=== PATIENT | female | born 1985 | race African-American/Black ===

== ENCOUNTER 2017-05-13 15:04 | Emergency (ER) | payer MEDICAID, OTHER ==
[~2017-05-13] VITALS: Ht 162.6 cm; Wt 84.0 kg
[2017-05-13 16:00] VITALS: BP 133/77
[2017-05-13 16:44] LABS: BASOPHILS % 0.5 % (0.0-2.0); EOSINOPHILS % 0.9 % (0.0-5.0); HEMATOCRIT. 39.1 % (36.0-48.0); HEMOGLOBIN. 13.1 g/dL (12.0-16.0); LYMPHOCYTES % 27.3 % (20.0-50.0); MEAN CORPUSCULAR HEMOGLOBIN 30.3 pg (28.0-32.0); MEAN CORPUSCULAR VOLUME 90.4 fL (81.0-99.0); MEAN PLATELET VOLUME 8.2 fl (7.4-10.4); MONOCYTES % 7.4 % (2.0-8.0); NEUTROPHILS % 63.9 % (40.0-76.0); PLATELET 316 x1000/uL (130-400); RED BLOOD CELL COUNT 4.33 mill/uL (4.2-5.4); RED CELL DISTRIBUTION WIDTH 14.8 % (11.6-14.6)
[2017-05-13 17:01] LABS: CARBON DIOXIDE 26 mEq/L (21-32); CHLORIDE 106 mEq/L (98-107)
[2017-05-13 17:03] LABS: B-HCG QUANTITATIVE 471 mIU/mL (<3)
== END 2017-05-13 18:57 | disposition home or self-care (01) ==
LOC: ER 15:10
DX: O46.92 Antepartum hemorrhage, unspecified, second trimester (principal); Z3A.22 22 weeks gestation of pregnancy
CPT/HCPCS: 36415; 76801; 80048; 84702; 85025; 86850; 86900; 99285

== ENCOUNTER 2017-05-14 09:59 | Inpatient (IN) | payer MEDICAID, OTHER ==
[~2017-05-14] VITALS: Ht 162.6 cm; Wt 83.9 kg
[2017-05-14 14:20] LABS: BASOPHILS % 0.8 % (0.0-2.0); EOSINOPHILS % 1.1 % (0.0-5.0); HEMATOCRIT. 38.3 % (36.0-48.0); HEMOGLOBIN. 13.1 g/dL (12.0-16.0); LYMPHOCYTES % 24.7 % (20.0-50.0); MEAN CORPUSCULAR HEMOGLOBIN 30.3 pg (28.0-32.0); MEAN CORPUSCULAR VOLUME 88.8 fL (81.0-99.0); MEAN PLATELET VOLUME 8.4 fl (7.4-10.4); MONOCYTES % 6.3 % (2.0-8.0); NEUTROPHILS % 67.1 % (40.0-76.0); PLATELET 289 x1000/uL (130-400); RED BLOOD CELL COUNT 4.31 mill/uL (4.2-5.4)
[2017-05-14 14:28] LABS: CHLORIDE 106 mEq/L (98-107)
[2017-05-14 14:31] LABS: CARBON DIOXIDE 24 mEq/L (21-32)
[2017-05-14 14:38] LABS: B-HCG QUANTITATIVE 509 mIU/mL (<3)
[2017-05-14 20:00] VITALS: BP 128/99
[2017-05-14] MEDS ORDERED: METHOTREXATE SODIUM/PF 50 MG/2 ML VIAL IM ONE (22:45)
[2017-05-14] MEDS ORDERED: IBUPROFEN 400MG TABLET PO PRN (23:00)
[2017-05-14] MEDS ORDERED: OXYCODONE HCL/ACETAMINOPHEN 5/325MG TABLET PO PRN (23:00)
[2017-05-14] MEDS ORDERED: METHOTREXATE SODIUM/PF 50 MG/2 ML VIAL IM NR (23:00)
[2017-05-15] VITALS: BP 125/68
[2017-05-15 04:00] VITALS: BP 98/62
[2017-05-15 04:30] VITALS: BP 120/64
[2017-05-15] MEDS ORDERED: PREN-88 PO (06:02)
[2017-05-15] MEDS ORDERED: BISA-81 PO (06:02)
[2017-05-15 06:57] LABS: BASOPHILS % 0.5 % (0.0-2.0); EOSINOPHILS % 2.1 % (0.0-5.0); HEMATOCRIT. 37.9 % (36.0-48.0); HEMOGLOBIN. 12.7 g/dL (12.0-16.0); LYMPHOCYTES % 30.8 % (20.0-50.0); MEAN CORPUSCULAR HEMOGLOBIN 30.4 pg (28.0-32.0); MEAN CORPUSCULAR VOLUME 90.8 fL (81.0-99.0); MEAN PLATELET VOLUME 8.4 fl (7.4-10.4); MONOCYTES % 9.3 % (2.0-8.0); NEUTROPHILS % 57.3 % (40.0-76.0); PLATELET 293 x1000/uL (130-400); RED BLOOD CELL COUNT 4.18 mill/uL (4.2-5.4)
[2017-05-15 08:00] VITALS: BP 116/65
[2017-05-15] MEDS ORDERED: ARIPIPRAZOLE 10MG TABLET PO SCH (09:00)
[2017-05-15 12:00] VITALS: BP 101/65
[2017-05-15 12:34] VITALS: BP 101/65
[2017-05-15] MEDS ORDERED: DOXEPIN HCL 25MG CAPSULE PO SCH (21:00)
== END 2017-05-15 14:15 | disposition home or self-care (01) | DRG 566 ==
LOC: ER 09:59 → ENRESERV 18:02 → 6EST 18:45
PROVIDERS: ADMIT Obstetrics & Gynecology; ATTEND Obstetrics & Gynecology
DX: O00.90 Unspecified ectopic pregnancy without intrauterine pregnancy (principal); F32.9 Major depressive disorder, single episode, unspecified; N93.9 Abnormal uterine and vaginal bleeding, unspecified; Z3A.22 22 weeks gestation of pregnancy
CPT/HCPCS: 36415; 76830; 76856; 80048; 80051; 84702; 85025; 99285; J7030; J9260

== ENCOUNTER 2017-09-10 23:40 | Emergency (ER) | payer OTHER ==
[~2017-09-10] VITALS: Ht 162.6 cm; Wt 87.0 kg
[~2017-09-10 23:40] MED LIST: BISA-81 PO; PREN-88 PO
[2017-09-11] MEDS ORDERED: ACETAMINOPHEN 325MG TABLET PO STA (03:24)
[2017-09-11 03:38] LABS: CLARITY URINE CLEAR (CLEAR); COLOR URINE YELLOW (YELLOW); GLUCOSE URINE NEGATIVE (NEGATIVE); KETONES URINE NEGATIVE (NEGATIVE); LEUKOCYTE ESTERASE URINE NEGATIVE (NEGATIVE); NITRITE URINE NEGATIVE (NEGATIVE); OCCULT BLOOD URINE NEGATIVE (NEGATIVE); PROTEIN URINE NEGATIVE (NEGATIVE); SPECIFIC GRAVITY URINE 1.027 (1.005-1.030); UROBILINOGEN URINE 0.2 E.U./dL (0.2-1.0)
[2017-09-11 04:04] LABS: CHLORIDE 107 mEq/L (98-107)
[2017-09-11 04:11] LABS: BASOPHILS % 0.4 % (0.0-2.0); EOSINOPHILS % 0.7 % (0.0-5.0); HEMATOCRIT. 37.9 % (36.0-48.0); HEMOGLOBIN. 12.8 g/dL (12.0-16.0); LYMPHOCYTES % 25.6 % (20.0-50.0); MEAN CORPUSCULAR HEMOGLOBIN 30.8 pg (28.0-32.0); MEAN CORPUSCULAR VOLUME 91.4 fL (81.0-99.0); MEAN PLATELET VOLUME 8.3 fl (7.4-10.4); MONOCYTES % 7.3 % (2.0-8.0); PLATELET 268 x1000/uL (130-400); RED BLOOD CELL COUNT 4.15 mill/uL (4.2-5.4); RED CELL DISTRIBUTION WIDTH 14.6 % (11.6-14.6)
[2017-09-11 04:20] LABS: CARBON DIOXIDE 25 mEq/L (21-32)
[2017-09-11 04:30] VITALS: BP 121/63
[2017-09-11 04:30] LABS: B-HCG QUANTITATIVE 1593 mIU/mL (<3)
== END 2017-09-11 05:00 | disposition home or self-care (01) ==
LOC: ER 23:55
DX: O26.891 Other specified pregnancy related conditions, first trimester (principal); K59.00 Constipation, unspecified; R10.9 Unspecified abdominal pain; Z3A.01 Less than 8 weeks gestation of pregnancy
CPT/HCPCS: 36415; 76801; 80053; 81003; 83690; 84702; 85025; 99285

== ENCOUNTER 2017-09-20 14:32 | Emergency (ER) | payer OTHER ==
[~2017-09-20] VITALS: Ht 162.6 cm; Wt 87.5 kg
[2017-09-20 15:45] LABS: BASOPHILS % 0.6 % (0.0-2.0); EOSINOPHILS % 0.8 % (0.0-5.0); HEMATOCRIT. 38.3 % (36.0-48.0); HEMOGLOBIN. 13.4 g/dL (12.0-16.0); MEAN CORPUSCULAR HEMOGLOBIN 31.9 pg (28.0-32.0); MEAN CORPUSCULAR VOLUME 91.3 fL (81.0-99.0); MEAN PLATELET VOLUME 8.2 fl (7.4-10.4); MONOCYTES % 6.5 % (2.0-8.0); NEUTROPHILS % 70.1 % (40.0-76.0); PLATELET 298 x1000/uL (130-400); RED BLOOD CELL COUNT 4.19 mill/uL (4.2-5.4); RED CELL DISTRIBUTION WIDTH 14.9 % (11.6-14.6)
[2017-09-20 15:46] LABS: CHLORIDE 105 mEq/L (98-107)
[2017-09-20 15:54] LABS: CLARITY URINE CLEAR (CLEAR); COLOR URINE YELLOW (YELLOW); GLUCOSE URINE NEGATIVE (NEGATIVE); KETONES URINE NEGATIVE (NEGATIVE); LEUKOCYTE ESTERASE URINE NEGATIVE (NEGATIVE); NITRITE URINE NEGATIVE (NEGATIVE); OCCULT BLOOD URINE 3+ (NEGATIVE); PH URINE 6.5 (4.5-8.0); PROTEIN URINE NEGATIVE (NEGATIVE); SPECIFIC GRAVITY URINE 1.023 (1.005-1.030); UROBILINOGEN URINE 0.2 E.U./dL (0.2-1.0)
[2017-09-20 15:54] LABS: CARBON DIOXIDE 26 mEq/L (21-32)
[2017-09-20 16:09] LABS: B-HCG QUANTITATIVE 3018 mIU/mL (<3)
[2017-09-20 17:48] VITALS: BP 109/70
== END 2017-09-20 18:10 | disposition home or self-care (01) ==
LOC: ER 15:12
DX: O20.0 Threatened abortion (principal); F17.210 Nicotine dependence, cigarettes, uncomplicated; Z3A.01 Less than 8 weeks gestation of pregnancy
CPT/HCPCS: 36415; 76801; 76817; 80053; 81001; 84702; 85025; 86850; 86900; 86901; 99285; X7700; Z7610

== ENCOUNTER 2017-09-25 15:37 | Emergency (ER) | payer OTHER ==
[~2017-09-25] VITALS: Ht 162.6 cm; Wt 86.0 kg
[2017-09-25 18:03] LABS: BASOPHILS % 0.5 % (0.0-2.0); HEMOGLOBIN. 13.4 g/dL (12.0-16.0); LYMPHOCYTES % 27.7 % (20.0-50.0); MEAN CORPUSCULAR HEMOGLOBIN 31.6 pg (28.0-32.0); MONOCYTES % 8.5 % (2.0-8.0); NEUTROPHILS % 62.3 % (40.0-76.0); PLATELET 314 x1000/uL (130-400); RED BLOOD CELL COUNT 4.23 mill/uL (4.2-5.4)
[2017-09-25 18:05] LABS: CHLORIDE 108 mEq/L (98-107)
[2017-09-25 18:10] LABS: CARBON DIOXIDE 22 mEq/L (21-32)
[2017-09-25 18:27] LABS: B-HCG QUANTITATIVE 3463 mIU/mL (<3)
[2017-09-25 20:32] VITALS: BP 123/60
== END 2017-09-25 21:10 | disposition home or self-care (01) ==
LOC: ER 15:45
DX: O20.0 Threatened abortion (principal); Z3A.01 Less than 8 weeks gestation of pregnancy
CPT/HCPCS: 36415; 76801; 76817; 80048; 84702; 85025; 99285; Z7610

== ENCOUNTER 2018-01-10 15:11 | Emergency (ER) | payer OTHER ==
[~2018-01-10] VITALS: Ht 162.6 cm; Wt 86.0 kg
[2018-01-10 17:12] LABS: CLARITY URINE CLEAR (CLEAR); COLOR URINE YELLOW (YELLOW); KETONES URINE TRACE (NEGATIVE); LEUKOCYTE ESTERASE URINE NEGATIVE (NEGATIVE); NITRITE URINE NEGATIVE (NEGATIVE); OCCULT BLOOD URINE NEGATIVE (NEGATIVE); PROTEIN URINE NEGATIVE (NEGATIVE); SPECIFIC GRAVITY URINE 1.032 (1.005-1.030); UROBILINOGEN URINE 0.2 E.U./dL (0.2-1.0)
[2018-01-10 19:36] LABS: BASOPHILS % 0.5 % (0.0-2.0); EOSINOPHILS % 0.8 % (0.0-5.0); HEMATOCRIT. 36.3 % (36.0-48.0); HEMOGLOBIN. 12.2 g/dL (12.0-16.0); MEAN CORPUSCULAR HEMOGLOBIN 30.6 pg (28.0-32.0); MEAN CORPUSCULAR VOLUME 91.5 fL (81.0-99.0); MEAN PLATELET VOLUME 7.9 fl (7.4-10.4); NEUTROPHILS % 69.7 % (40.0-76.0); PLATELET 311 x1000/uL (130-400); RED BLOOD CELL COUNT 3.97 mill/uL (4.2-5.4); RED CELL DISTRIBUTION WIDTH 14.5 % (11.6-14.6)
[2018-01-10 19:48] LABS: CHLORIDE 106 mEq/L (98-107)
[2018-01-10 20:11] LABS: B-HCG QUANTITATIVE 47777 mIU/mL (<3)
[2018-01-10 22:02] VITALS: BP 135/66
== END 2018-01-10 22:02 | disposition home or self-care (01) ==
LOC: ER 15:25
DX: O20.0 Threatened abortion (principal); Z3A.01 Less than 8 weeks gestation of pregnancy
CPT/HCPCS: 36415; 76801; 80053; 81003; 81025; 84702; 85025; 86850; 86900; 99285

== ENCOUNTER 2020-10-02 15:36 | Emergency (ER) | payer OTHER ==
[~2020-10-02] VITALS: Ht 162.6 cm; Wt 82.0 kg
[2020-10-02] MEDS ORDERED: ONDANSETRON HCL 4MG/2ML INJ IV ONE (17:15)
[2020-10-02] MEDS ORDERED: SODIUM CHLORIDE 0.9% 1,000 ML IV ONE (17:15)
[2020-10-02] MEDS ORDERED: MECLIZINE 25MG TABLET PO ONE (17:15)
[2020-10-02 18:02] LABS: BASOPHILS % 0.8 % (0.0-2.0); EOSINOPHILS % 1.4 % (0.0-5.0); HEMATOCRIT. 41.6 % (36.0-48.0); LYMPHOCYTES % 28.1 % (20.0-50.0); MEAN CORPUSCULAR HEMOGLOBIN 30.8 pg (28.0-32.0); MEAN CORPUSCULAR VOLUME 91.6 fL (81.0-99.0); MEAN PLATELET VOLUME 8.8 fl (7.4-10.4); MONOCYTES % 5.7 % (2.0-8.0); PLATELET 251 x1000/uL (130-400); RED BLOOD CELL COUNT 4.55 mill/uL (4.2-5.4); RED CELL DISTRIBUTION WIDTH 13.9 % (11.6-14.6)
[2020-10-02 18:08] LABS: CHLORIDE 107 mEq/L (98-107)
[2020-10-02 18:12] LABS: ETHANOL BLOOD < 10 mg/dL
[2020-10-02 18:23] LABS: HCG SCREEN NEGATIVE
[2020-10-02] MEDS ORDERED: METOCLOPRAMIDE HCL 10MG/2ML VIAL IV ONE (18:45)
[2020-10-02 19:37] VITALS: BP 131/70
[2020-10-02 20:36] LABS: CLARITY URINE CLEAR (CLEAR); COLOR URINE YELLOW (YELLOW); KETONES URINE 1+ (NEGATIVE); LEUKOCYTE ESTERASE URINE 2+ (NEGATIVE); NITRITE URINE NEGATIVE (NEGATIVE); OCCULT BLOOD URINE 1+ (NEGATIVE); PROTEIN URINE NEGATIVE (NEGATIVE); SPECIFIC GRAVITY URINE 1.024 (1.005-1.030); UROBILINOGEN URINE 0.2 E.U./dL (0.2-1.0)
[2020-10-02 20:48] LABS: *AMPHETAMINES SCREEN URINE NEGATIVE (NEGATIVE); *BARBITURATES SCREEN URINE NEGATIVE (NEGATIVE)
[2020-10-02 20:49] LABS: *BENZODIAZEPINES SCREEN URINE NEGATIVE (NEGATIVE); *COCAINE SCREEN URINE NEGATIVE (NEGATIVE); CANNABINOID URINE SCREEN NEGATIVE (NEGATIVE); METHADONE URINE SCREEN NEGATIVE (NEGATIVE); OPIATES URINE SCREEN NEGATIVE (NEGATIVE); PHENCYCLIDINE URINE SCREEN NEGATIVE (NEGATIVE)
== END 2020-10-02 20:27 | disposition home or self-care (01) ==
LOC: ER 15:36
DX: R42 Dizziness and giddiness (principal); E11.9 Type 2 diabetes mellitus without complications; I10 Essential (primary) hypertension
CPT/HCPCS: 36415; 70450; 71045; 80053; 80305; 80320; 81003; 83880; 84484; 84703; 85025; 85379; 86850; 86900; 86901; 93005; 96361; 96374; 96375; 99285; J2405; J2765; J7030; J8597; G0480